=== PATIENT | male | born 1985 | race Caucasian/White ===

== ENCOUNTER 2017-02-23 08:56 | Emergency (ER) | payer MEDICAID, OTHER ==
[2017-02-23 09:01] VITALS: RESP 16; TEMP 97.7
--- NOTE | 2017-02-23 09:07 | EDPHY ---
H & P Stated Complaint: Wants testing/tx for poss GC;partner has + GC/poss chlamydia Source: Patient Exam Limitations: No limitations - Personal History Current Tetanus Diphtheria and Acellular Pertussis (TDAP): Unsure - Medical/Surgical History Other PMH: healthy - Social History Smoking Status: Current every day smoker Time Seen by Provider: 02/23/17 09:07 HPI/ROS: HPI: This is a 31-year-old male who presents with Chief Complaint: Wants testing/tx for poss GC;partner has + GC/poss chlamydia Location: Quality: Std exposure Duration: 1 week Signs and Symptoms: no fever, no nausea, no vomiting, no hematemesis, no blood in stool, no abdominal bloating, no diarrhea, no back pain, + penile discharge, no sores on penis or genital area, no testicular/groin pain, no indigestion, no chest pain, no shortness of breath Timing: Gradual onset Severity: [id number] Context: Patient is generally healthy, was advised approximately 1 week ago, that his sexual partner tested positive for Chlamydia. She received treatment for both gonorrhea and chlamydia. Over the last week, he has started to notice yellowish green penile discharge. Denies any testicular/groin pain, testicular swelling, rashes or lesions in genital area. Patient reports in the past use treated 1 other time for gonorrhea and chlamydia. Denies history of herpes. Modifying Factors: None Comment: ROS: see HPI Constitutional: No fever, no chills, no weight loss Eyes: No blurred vision Respiratory: No shortness of breath, no cough Cardiovascular: No chest pain, no palpitations Gastrointestinal: No nausea, no vomiting, no diarrhea, no hematemesis, no blood in stool Genitourinary: No dysuria, no blood in urine Extremities: No myalgias, no edema Neurologic: No weakness, no numbness Skin: No rashes, no petechiae Hematologic: No bruising, no bleeding MEDICAL/SURGICAL/SOCIAL HISTORY: Medical history: Generally healthy. Does not take any regular medications. Surgical history: Denies Social history: Employed. CONSTITUTIONAL: Adult white male, nontoxic in appearance, awake and alert, no obvious distress HEENT: Atraumatic and normocephalic, PERRL, EOMI. Tympanic membranes clear. Oropharynx clear, no exudate and moist pink mucosa. Airway patent. No lymphadenopathy. No meningismus. Cardiovascular: Normal S1/S2, regular rate, regular rhythm, without murmur rub or gallop. PULMONARY/CHEST: Symmetrical and nontender. Clear to auscultation bilaterally. Good air movement. No accessory muscle usage. ABDOMEN: Soft, nondistended, nontender, no rebound, no guarding, no peritoneal signs, no masses or organomegaly. No CVAT. EXTREMITIES: 2/2 pulses, strength 5/5, no deformities, no clubbing, no cyanosis or edema. NEUROLOGICAL: no focal neuro deficits. GCS 15. SKIN: Warm and dry, no erythema. no rash. Good capillary refill. (Neena Vega) Constitutional: Initial Vital Signs Temperature (C) 36.5 C 02/23/17 08:57 Heart Rate 88 02/23/17 08:57 Respiratory Rate 16 02/23/17 08:57 Blood Pressure 111/70 02/23/17 08:57 O2 Sat (%) 98 02/23/17 08:57 O2 Delivery Mode Room Air Allergies/Adverse Reactions: No Known Allergies Allergy (Unverified 02/23/17 09:01) Home Medications: Medication Instructions Recorded NK [No Known Home Meds] 02/23/17 Medical Decision Making ED Course/Re-evaluation: Urine GC ordered Treated prophylactically with IM ceftriaxone and p.o. azithromycin. This patient was seen under the supervision of my secondary supervising physician. I evaluated care for this patient independently. Discussed this patient with Dr. Meza who did not see the patient. (Neena Vega) The patient was evaluated and managed by the physician research study assistant. I have reviewed this chart and I agree with the findings and plan of care as documented , as indicated by my signature. I am the secondary supervising physician. ( Rosio Meza) Differential Diagnosis: Differential diagnosis includes but is not limited to gonorrhea, chlamydia. (Neena Vega) - Data Points Medications Given: Discontinued Medications Azithromycin (Zithromax) 1,000 mg PO EDNOW ONE PRN Reason: Protocol Stop: 02/23/17 09:11 Last Admin: 02/23/17 10:12 Dose: 1,000 mg Ceftriaxone Sodium (Rocephin Im Syringe) 250 mg IM EDNOW ONE PRN Reason: Protocol Stop: 02/23/17 09:10 Last Admin: 02/23/17 10:10 Dose: 250 mg Departure - Departure Disposition: Home, Routine, Self-Care Clinical Impression: STD exposure, Exposure to chlamydia Condition: Good Instructions: Chlamydia (ED), Sexually Transmitted Diseases (ED), Condom Use ( ED), Safe Sex (ED) Additional Instructions: Please abstain from sexual intercourse a minimum of 7 days and until all of your sexual partners have been treated. Please practice safe sex and use a condom. Referrals: [facility],. [Clinic] - As per Instructions
[2017-02-23] MEDS ORDERED: CEFTRIAXONE IM 350 MG/ML SYRINGE IM ONE (09:09)
[2017-02-23] MEDS ORDERED: AZITHROMYCIN 250 MG TAB PO ONE (09:10)
[2017-02-23 10:17] VITALS: BP 128/73; PULSE 74; O2SAT 95
[2017-02-25 12:41] LABS: GC AMPLIFICATION GENPROBE POSITIVE (NEGATIVE)
== END 2017-02-23 10:16 | disposition home or self-care (01) ==
DX: Z20.2 Contact with and (suspected) exposure to infections with a predominantly sexual mode of transmission (principal); F17.200 Nicotine dependence, unspecified, uncomplicated
CPT/HCPCS: J0696